=== PATIENT | male | born 1985 | race Caucasian/White ===

== ENCOUNTER 2020-09-05 05:46 | Emergency (ER) | payer BC, SELFPAY ==
[2020-09-05 05:54] VITALS: BP 120/69; PULSE 80; RESP 16; TEMP 36.4; O2SAT 100
--- NOTE | 2020-09-05 06:45 | ED.URI ---
HPI - URI/Sore Throat General Chief Complaint: Upper Respiratory Infection Stated Complaint: sore throat Time Seen by Provider: 09/05/20 06:41 Source: RN notes reviewed History of Present Illness HPI Narrative: Patient presents to emergency department from home for sore throat. Patient states symptoms began approximately 18 hours ago. Patient states he was mowing some thick grass yesterday and symptoms seem to occur after that. States that sore throat is associated with some feeling of phlegm in his throat he denies any fevers or chills ear pain rhinorrhea cough shortness of breath abdominal pain nausea vomiting loss of smell or taste or any other symptoms states he is taking no pain medication for the symptoms Related Data Home Medications Medication Instructions Recorded Confirmed famotidine 09/05/20 Allergies Allergy/AdvReac Type Severity Reaction Status Date / Time No Known Allergies Allergy Unknown Unverified 02/09/18 17:13 Review of Systems Review of Systems: Narrative: Gen.: Denies fevers or chills Eyes: Denies eye pain or visual change ENT: See HPI Respiratory: Denies shortness of breath or cough CV: Denies chest pain or palpitations GI: Denies abdominal pain nausea, emesis or diarrhea Musculoskeletal: No neck pain Neuro: Headache or weakness Skin: Denies rash Except as documented, all other systems reviewed and negative [facility] Past Medical History Medical History (Updated 09/05/20 @ 06:47 by Misael Aragon DO) Patient denies significant medical history Social History Social History (Updated 09/05/20 @ 06:46 by Misael Aragon DO) Smoking status: Never smoker Exam Narrative: Exam Narrative: APPEARANCE: No acute distress, nontoxic, resting in bed EYES: EOMI HEENT: Normocephalic, atraumatic, TMs clear bilaterally nares patent oral mucosa moist, mild erythema with no exudate of posterior pharynx bilateral tonsils no exudates seen uvula midline no trismus tolerating own secretions RESPIRATORY: No respiratory distress Clear to auscultation bilaterally with no rhonchi wheezing or rales. CARDIOVASCULAR: Regular rate and rhythm without murmurs rubs or gallops. ABDOMINAL: Soft, nontender, MUSCULOSKELETAl: Moves all extremities. N NEURO: Awake and alert. Following commands, speech normal, no focal deficits SKIN:: Warm, dry. No rashes lesions or abrasions PSYCHIATRIC: Normal affect/mood, Course Course Emergency Course: Discussed with patient results of workup and diagnosis. Discussed need for follow-up with primary care, proper use of medication, and reasons to return to the emergency department. Patient understands and agrees to current treatment plan Vital Signs Vital signs: Vital Signs Temperature 97.6 F 09/05/20 05:54 Pulse Rate 80 09/05/20 05:54 Respiratory Rate 16 09/05/20 05:54 Blood Pressure 120/69 09/05/20 05:54 Pulse Oximetry 100 09/05/20 05:54 Temperature 97.6 F 09/05/20 05:54 Pulse Rate 80 09/05/20 05:54 Respiratory Rate 16 09/05/20 05:54 Blood Pressure 120/69 09/05/20 05:54 Pulse Oximetry 100 09/05/20 05:54 MDM - URI/Sore Throat Lab Data Labs: Strep Screen Presumptive Negative *(Reference Range: Negative)* Discharge Plan Discharge Clinical Impression: Pharyngitis, Seasonal allergies Patient Disposition: Home, Self-Care Condition: Stable Instructions: Antibiotic Form, Pharyngitis (ED) Additional Instructions: Return for increasing sore throat, fever vomiting or any other symptoms of concern Prescriptions: New loratadine 10 mg capsule 10 mg PO DAILY Qty: 7 RF: 0 fluticasone propionate [Flonase Allergy Relief] 50 mcg/actuation spray,suspension 1 spray intranasal DAILY 7 Days Qty: 16 RF: 0 ibuprofen [IBU] 600 mg tablet 600 mg PO Q6H PRN (Reason: pain) Qty: 20 RF: 0 No Action famotidine 40 mg tablet RF: 0 Follow-up/Referrals:
[2020-09-05 07:08] VITALS: BP 100/60; PULSE 61; RESP 18; TEMP 36.6; O2SAT 100
== END 2020-09-05 07:10 | disposition home or self-care (01) ==
PROVIDERS: Emergency Provider Emergency Medicine; PCP Family Medicine
DX: J02.9 Acute pharyngitis, unspecified (principal); J30.2 Other seasonal allergic rhinitis
CPT/HCPCS: 87081; 87880; 99283